=== PATIENT | male | born 2000 | race Caucasian/White ===

== ENCOUNTER 2025-01-31 11:07 | Emergency (ER) | payer BC, SELFPAY ==
[2025-01-31 11:10] VITALS: BP 132/85
--- NOTE | 2025-01-31 12:49 | ED.GENMED ---
History of Present Illness
General
Chief Complaint: Crisis Evaluation
Source: patient
Exam Limitations: none
Time Seen by Provider: 01/31/25 11:30
Nursing documentation reviewed up to this point in time: agreed with
History of Present Illness
History of Present Illness:
Patient with history of ADHD and bipolar disorder, presents to ED requesting evaluation secondary to persistent sensation of anxiety, driven by 'inappropriate sexual thoughts/desires'. Patient is afraid that he might act upon it. However, patient
is aware that he cannot act upon it. He does not have any history. Denies suicidal or homicidal ideation. Denies recent change in medications or diet. Patient does have a therapist whom he sees regularly. In fact, patient does have an
appointment tomorrow. Denies recent illness. Patient has no additional medical complaints.
Past History
Past History
ED Past Medical History: Psychiatric (ADHD, bipolar disorder, panic disorder)
ED Past Surgical History: None
Social History
Tobacco: Vaping
Alcohol: Occasional
Drug: None
Personal: Single
Living: with family
Employment: Employed
Family History
Family History: Other (Noncontributory)
Review of Systems
Review of Systems
Allergies reviewed?: Yes
All Other Systems: ROS reviewed and negative except as documented in HPI and ROS
Constitutional: Reports no symptoms
Cardiac: Reports no symptoms; Denies palpitations
ABD/GI: Reports no symptoms
Musculoskeletal: Reports no symptoms
Skin: Reports no symptoms
Neurological: Reports no symptoms
Psychiatric: Reports anxiety
Phy Exam
Physical Exam
Physical Exam:
Physical Exam
General: no apparent distress, not acutely ill. afebrile
Head: nc/at. eomi
Neck: supple. no meningeal signs.
Heart: s1/s2 regular rate and rhythm
Lungs: no acute respiratory distress. clear bilaterally
Abdomen: normal bowel sounds. not tender.
Neuro: alert and oriented x 3. no focal neurological deficits
Skin: no rash
Psychiatric: well kept. interactive and cooperative
Extremities: no edema. no calf tenderness.
Course
Orders/Labs/Results
Orders:
Orders
01/31/25 11:30
Crisis Consult Urgent
Reason for Consult: anxiety/depression
Vital Signs
Initial and Last Documented VS:
Initial Vital Signs
Temp Pulse Resp BP Pulse Ox
98.3 F 95 16 132/85 98
01/31/25 11:10 01/31/25 11:10 01/31/25 11:10 01/31/25 11:10 01/31/25 11:10
Last Documented Vital Signs
Temp Pulse Resp BP Pulse Ox
98.3 F 95 16 132/85 98
01/31/25 11:10 01/31/25 11:10 01/31/25 11:10 01/31/25 11:10 01/31/25 12:49
MDM/Problems Addressed
MDM/Problems Addressed:
Patient evaluated by [facility] drop board worker. Discussed treatment options with patient and family, including inpatient evaluation/treatment. However, at this time, patient prefers to go home with intensive outpatient therapy. Parents
agreeable to have the patient stay with them until he is reevaluated further. Patient will return to ED with any deterioration of his symptoms.
*Pulse Oximetry
SaO2: 98
Oxygen Mode of Delivery: Room air
Patient hypoxic: no
*Critical Care Note
Total Time (30-74mins, 75-104mins- exclusive of procedures): Not Applicable
ED Attending Note
-
Portions of this chart may have been created with voice recognition software.� Occasional wrong word or��sound alike� substitutions may have occurred due to the inherent limitations of voice recognition software.
Discharge Plan
Departure
Patient Disposition: Home (Routine Discharge)
Date of Disposition: 01/31/25
Time of Disposition: 12:49
Patient with high blood pressure during this ER visit?: Yes
Condition: Good
Discharge Problem:
Anxiety
Instructions: Anxiety, Adult (DC)
Prescriptions:
No Action
Unobtainable
0
Referrals:
Aline Joiner PA-C [Family Provider]
Activity Restrictions/Additional Instructions:
As discussed, please follow-up with your psychiatrist tomorrow, as scheduled, for reevaluation. Please consider return to ED with worsening symptoms.
Interventions
Interventions:
*Risk Screen - Suicide Last Done: 01/31/25 11:10
*General Assessment Last Done: 01/31/25 13:26
*Neglect/Abuse Screening Last Done: 01/31/25 11:10
*ED- Fall Risk Assessment Last Done: 01/31/25 13:26
*ED COVID-19 Vaccine History Last Done: 01/31/25 13:26
*Nursing Disposition Last Done: 01/31/25 13:26
ED-Psychological Assessment Last Done: 01/31/25 12:40
Discharge Date and Time
Discharge Date/Time: 01/31/25 13:27
Print Language: OCCITAN
== END 2025-01-31 13:27 | disposition home or self-care (01) ==
LOC: EMR 11:07
PROVIDERS: EMERGENCY PHYSICIAN Emergency Medicine; FAMILY PHYSICIAN Physician Assistant Medical
DX: F41.9 Anxiety disorder, unspecified (principal); R03.0 Elevated blood-pressure reading, without diagnosis of hypertension; F90.9 Attention-deficit hyperactivity disorder, unspecified type; F31.9 Bipolar disorder, unspecified; F41.0 Panic disorder [episodic paroxysmal anxiety]; F17.290 Nicotine dependence, other tobacco product, uncomplicated
CPT/HCPCS: 99283